=== PATIENT | male | born 1950 | race Caucasian/White ===

== ENCOUNTER → 2024-01-13 | Outpatient (CLI) | payer MEDICARE, OTHER | END | disposition home or self-care (01) | LOC: LAB 13:40 | PROVIDERS: ATTEND Registered Nurse | DX: Z51.81 Encounter for therapeutic drug level monitoring (principal); Z79.01 Long term (current) use of anticoagulants ==

== ENCOUNTER 2024-03-06 09:27 | Emergency (ER) | payer MEDICARE, OTHER ==
[~2024-03-06] VITALS: Ht 177.8 cm; Wt 86.0 kg
[2024-03-06] MEDS ORDERED: SODIUM CHLORIDE 0.9% 1,000 ML IV ONE (10:50)
[2024-03-06] MEDS ORDERED: Ondansetron Hydrochloride 4 MG/2 ML VIAL IV ONE (10:50)
[2024-03-06] MEDS ORDERED: MORPHINE Sulfate 2 MG/ML SYR IV ONE (10:50)
[2024-03-06 11:01] LABS: BASO # 0.1 10*3/uL (0.0-0.1); BASO % 1.1 % (0.0-1.0); EOS # 0.4 10*3/uL (0.0-0.4); EOS % 5.9 % (1.0-4.0); HEMATOCRIT 48.4 % (42.0-52.0); MEAN CELL VOLUME 84.9 fl (80.0-94.0); MEAN CORPUSCULAR HGB 26.7 pg (27.0-31.0); MEAN CORPUSCULAR HGB CONC 31.4 g/dl (33.0-37.0); MEAN PLATELET VOLUME 9.6 fl (9.6-12.3); MONO # 0.5 10*3/uL (0.1-1.0); MONO % 7.6 % (3.0-9.0); NEUT # 4.3 10*3/uL (2.3-7.9); NEUT % 70.6 % (47.0-73.0); PLATELET COUNT AUTOMATED 231 10*3/uL (130-400); RED CELL DISTRI WIDTH 14.8 % (0-14.5); WHITE BLOOD COUNT 6.2 10*3/uL (4.8-10.8)
[2024-03-06 11:20] LABS: BUN 10 mg/dl (9-23); CHLORIDE 103 mmol/L (98-107); LIPASE 41 U/L (12-53); POTASSIUM 4.2 mmol/L (3.4-5.1)
== END 2024-03-06 12:56 | disposition home or self-care (01) ==
LOC: ED 09:27
PROVIDERS: Emergency Medicine
DX: K59.00 Constipation, unspecified (principal); I10 Essential (primary) hypertension; K21.9 Gastro-esophageal reflux disease without esophagitis

== ENCOUNTER → 2024-03-26 | Outpatient (CLI) | payer MEDICARE, OTHER | END | disposition home or self-care (01) | LOC: LAB 09:47 | PROVIDERS: ATTEND Registered Nurse | DX: Z51.81 Encounter for therapeutic drug level monitoring (principal); Z79.01 Long term (current) use of anticoagulants ==

== ENCOUNTER → 2024-04-01 | Outpatient (CLI) | payer MEDICARE, OTHER | END | disposition home or self-care (01) | LOC: LAB 08:37 | PROVIDERS: ATTEND Registered Nurse | DX: Z51.81 Encounter for therapeutic drug level monitoring (principal); Z79.01 Long term (current) use of anticoagulants ==

== ENCOUNTER → 2024-04-23 | Outpatient (CLI) | payer MEDICARE, OTHER | END | disposition home or self-care (01) | LOC: LAB 11:36 | PROVIDERS: ATTEND Registered Nurse | DX: Z51.81 Encounter for therapeutic drug level monitoring (principal); Z79.01 Long term (current) use of anticoagulants ==

== ENCOUNTER → 2024-05-13 | Outpatient (CLI) | payer MEDICARE, OTHER | END | disposition home or self-care (01) | LOC: LAB 08:40 | PROVIDERS: ATTEND Registered Nurse | DX: Z51.81 Encounter for therapeutic drug level monitoring (principal); Z79.01 Long term (current) use of anticoagulants ==

== ENCOUNTER → 2024-06-19 | Outpatient (CLI) | payer MEDICARE, OTHER | END | disposition home or self-care (01) | LOC: LAB 09:22 | PROVIDERS: ATTEND Registered Nurse | DX: Z51.81 Encounter for therapeutic drug level monitoring (principal); Z79.01 Long term (current) use of anticoagulants ==

== ENCOUNTER 2024-06-23 08:31 | Emergency (ER) | payer MEDICARE, OTHER ==
[~2024-06-23] VITALS: Ht 177.8 cm; Wt 83.9 kg
[2024-06-23] MEDS ORDERED: MORPHINE Sulfate 2 MG/ML SYR IV ONE (08:45)
[2024-06-23] MEDS ORDERED: Ondansetron Hydrochloride 4 MG/2 ML VIAL IV ONE (08:45)
[2024-06-23] MEDS ORDERED: SODIUM CHLORIDE 0.9% 1,000 ML IV ONE (08:50)
[2024-06-23] MEDS ORDERED: IOHEXOL 300 MG/ML 100 ML VIAL IV ONE (08:55)
[2024-06-23 09:00] LABS: BASO # 0.1 10*3/uL (0.0-0.1); BASO % 1.2 % (0.0-1.0); EOS # 0.4 10*3/uL (0.0-0.4); HEMATOCRIT 42.9 % (42.0-52.0); MEAN CELL VOLUME 84.8 fl (80.0-94.0); MEAN CORPUSCULAR HGB 27.1 pg (27.0-31.0); MEAN CORPUSCULAR HGB CONC 31.9 g/dl (33.0-37.0); MEAN PLATELET VOLUME 9.5 fl (9.6-12.3); MONO # 0.5 10*3/uL (0.1-1.0); MONO % 8.2 % (3.0-9.0); NEUT # 3.9 10*3/uL (2.3-7.9); NEUT % 68.8 % (47.0-73.0); PLATELET COUNT AUTOMATED 221 10*3/uL (130-400); RED BLOOD COUNT 5.06 10*6/uL (4.50-5.90); RED CELL DISTRI WIDTH 14.6 % (0-14.5); WHITE BLOOD COUNT 5.7 10*3/uL (4.8-10.8)
[2024-06-23 09:14] LABS: BILIRUBIN Negative (Negative); BLOOD Negative (Negative); CLARITY Clear (Clear); COLOR Yellow (Yellow); GLUCOSE Negative (Negative); KETONE Negative (Negative); LEUKO ESTERASE Negative (Negative); NITRITE Negative (Negative); SPECIFIC GRAVITY 1.015 (1.001-1.030); UROBILINOGEN 0.2 E.U./dl (0.0-1.0)
[2024-06-23 09:19] LABS: ALKALINE PHOSPHATASE 73 U/L (46-116); BUN 9 mg/dl (9-23); CHLORIDE 106 mmol/L (98-107); LIPASE 67 U/L (12-53); SGPT/ALT 12 U/L (5-49); TOTAL PROTEIN 5.9 gm/dL (6.0-8.0)
[2024-06-23 09:38] LABS: RBC 0-2 rbc/hpf (0-2); WBC 0-2 wbc/hpf (0-5)
== END 2024-06-23 11:33 | disposition home or self-care (01) ==
LOC: ED 08:31
PROVIDERS: Internal Medicine
DX: R10.32 Left lower quadrant pain (principal)

== ENCOUNTER → 2024-08-03 | Outpatient (CLI) | payer MEDICARE, OTHER | END | disposition home or self-care (01) | LOC: LAB 08:31 | PROVIDERS: ATTEND Registered Nurse | DX: Z51.81 Encounter for therapeutic drug level monitoring (principal); Z79.01 Long term (current) use of anticoagulants ==

== ENCOUNTER → 2024-08-18 | Outpatient (CLI) | payer MEDICARE, OTHER | END | disposition home or self-care (01) | LOC: LAB 08:04 | PROVIDERS: ATTEND Registered Nurse | DX: Z51.81 Encounter for therapeutic drug level monitoring (principal); Z79.01 Long term (current) use of anticoagulants ==

== ENCOUNTER → 2024-10-23 | Outpatient (CLI) | payer MEDICARE, OTHER | END | disposition home or self-care (01) | LOC: LAB 08:26 | PROVIDERS: ATTEND Registered Nurse | DX: Z51.81 Encounter for therapeutic drug level monitoring (principal); Z79.01 Long term (current) use of anticoagulants ==

== ENCOUNTER → 2024-11-27 | Outpatient (CLI) | payer MEDICARE, OTHER | END | disposition home or self-care (01) | LOC: LAB 02:37 → ORTHO 02:37 | PROVIDERS: ATTEND Orthopaedic Surgery | DX: M25.462 Effusion, left knee (principal); M25.561 Pain in right knee; Z51.81 Encounter for therapeutic drug level monitoring; Z79.01 Long term (current) use of anticoagulants ==

== ENCOUNTER → 2025-01-11 | Outpatient (CLI) | payer MEDICARE, OTHER | END | disposition home or self-care (01) | LOC: LAB 09:59 | PROVIDERS: ATTEND Registered Nurse | DX: Z51.81 Encounter for therapeutic drug level monitoring (principal); Z79.01 Long term (current) use of anticoagulants ==